=== PATIENT | female | born 1965 | race Two or more races ===

== ENCOUNTER → 2017-11-13 | Outpatient (CLI) | payer SELFPAY ==
--- NOTE | 2017-11-13 15:11 | RAD ---
DATE: 11/13/2017 EXAM: MAMMO JESSICA SCREENING BILATERAL HISTORY: Routine screening COMPARISON: 12/31/2010, 03/06/2009 This study was interpreted with the benefit of Computerized Aided Detection (CAD). The breast parenchyma shows scattered fibroglandular densities. Breast parenchyma level B. FINDINGS: 2-D and 3-D tomosynthesis imaging was performed in CC and MLO projections. There are small smooth unchanged nodules in the posterolateral aspects of both breasts. There is a stable lymph node type density in the left axilla. No new or enlarging breast densities are seen. No suspicious microcalcifications are evident. IMPRESSION: Stable mammograms without evidence of malignancy. BI-RADS CATEGORY: 2 BENIGN FINDING(S) RECOMMENDED FOLLOW-UP: 12M 12 MONTH FOLLOW-UP PQRS compliance statement: Patient information was entered into a reminder system with a target due date for the next mammogram. Mammography is a sensitive method for finding small breast cancers, but it does not detect them all and is not a substitute for careful clinical examination. A negative mammogram does not negate a clinically suspicious finding and should not result in delay in biopsying a clinically suspicious abnormality. "Our facility is accredited by the [employer] Mammography Program."
== END | disposition home or self-care (01) ==
LOC: MAMMO 09:17
PROVIDERS: ATTEND Physician Assistant
DX: Z12.31 Encounter for screening mammogram for malignant neoplasm of breast (principal)
CPT/HCPCS: 77063; 77067

== ENCOUNTER → 2018-08-27 | Outpatient (CLI) | payer SELFPAY ==
[2018-08-27 15:10] LABS: ALBUMIN 3.4 g/dL (3.4-5.0); ALBUMIN/GLOBULIN RATIO 0.8 (1.0-1.7); CALCIUM 9.4 mg/dL (8.5-10.1); CREATININE 0.8 mg/dL (0.6-1.0); GFR 74.5; POTASSIUM 3.9 mmol/L (3.5-5.1); TOTAL BILIRUBIN 0.4 mg/dL (0.2-1.0); TOTAL PROTEIN 7.9 g/dL (6.4-8.2)
[2018-08-28 04:09] LABS: HEMOGLOBIN A1C 9.9 % (4.8-5.6)
== END | disposition home or self-care (01) ==
LOC: LAB 14:12
PROVIDERS: ATTEND Nurse Practitioner Adult Health
DX: E11.65 Type 2 diabetes mellitus with hyperglycemia (principal)
CPT/HCPCS: 36415; 80053; 83036

== ENCOUNTER 2021-12-20 14:41 | Emergency (ER) | payer SELFPAY ==
[~2021-12-20] VITALS: Ht 154.9 cm; Wt 81.4 kg
[2021-12-20 15:02] VITALS: BP 140/84
--- NOTE | 2021-12-20 15:07 | PHYS DOC ---
General Adult EDM: Chief Complaint: SHORTNESS OF BREATH HPI: HPI: Patient is a 56-year-old female who presents to the emergency department for shortness of breath for the last 2 weeks. Patient was sent in by Dr. Flanagan who reported to nursing staff that her "x-ray looked bad". Patient is also reporting left-sided chest pain that is worse with deep inspiration/movement and coughing. She reports a new green productive cough. She reports that she is not having pain currently. The pain does not radiate. Patient has a history of hyperlipidemia, diabetes and hypertension. She denies nausea, vomiting, fevers. (ODESSA RUBIN APRN) Review of Systems: Review of Systems: Constitutional: See HPI Respiratory: See HPI Cardiovascular: See HPI GI: See HPI (ODESSA RUBIN APRN) Allergies: Allergies: Allergies Coded Allergies Type Severity Reaction Last Updated Verified No Known Drug Allergies 12/20/21 No (ODESSA RUBIN APRN) Physical Exam: PE: Constitutional: Well developed, well nourished, no acute distress, non-toxic appearance. [] HENT: Normocephalic, atraumatic, bilateral external ears normal, oropharynx moist, no oral exudates, nose normal. [] Eyes: PERRL, EOMI, conjunctiva normal, no discharge. [] Neck: Normal range of motion, no tenderness, supple, no stridor. [] Cardiovascular:Heart rate regular rhythm, no murmur [] Lungs & Thorax: Wheezing noted in bilateral upper lobes Abdomen: Bowel sounds normal, soft, no tenderness, no masses, no pulsatile masses. [] Skin: Warm, dry, no erythema, no rash. [] Back: No tenderness, normal range of motion Extremities: No tenderness, no cyanosis, no clubbing, ROM intact, no edema. [] Neurologic: Alert and oriented X 3, normal motor function, normal sensory function, no focal deficits noted. [] Psychologic: Affect normal, judgement normal, mood normal. [] (ODESSA RUBIN APRN) Current Patient Data: Labs: Laboratory Tests Test 12/20/21 15:26 White Blood Count 5.1 x10^3/uL Red Blood Count 4.49 x10^6/uL Hemoglobin 11.9 g/dL Hematocrit 37.1 % Mean Corpuscular Volume 83 fL Mean Corpuscular Hemoglobin 27 pg Mean Corpuscular Hemoglobin Concent 32 g/dL Red Cell Distribution Width 14.7 % Platelet Count 356 x10^3/uL Neutrophils (%) (Auto) 53 % Lymphocytes (%) (Auto) 37 % Monocytes (%) (Auto) 9 % Eosinophils (%) (Auto) 1 % Basophils (%) (Auto) 0 % Neutrophils # (Auto) 2.7 x10^3uL Lymphocytes # (Auto) 1.9 x10^3/uL Monocytes # (Auto) 0.5 x10^3/uL Eosinophils # (Auto) 0.1 x10^3/uL Basophils # (Auto) 0.0 x10^3/uL D-Dimer (Cassy) 0.86 mg/L Sodium Level 137 mmol/L Potassium Level 3.9 mmol/L Chloride Level 104 mmol/L Carbon Dioxide Level 22 mmol/L Anion Gap 11 Blood Urea Nitrogen 6 mg/dL Creatinine 0.7 mg/dL Estimated GFR (Cockcroft-Gault) 85.9 BUN/Creatinine Ratio 9 Glucose Level 237 mg/dL Calcium Level 8.9 mg/dL Total Bilirubin 0.6 mg/dL Aspartate Amino Transf (AST/SGOT) 24 U/L Alanine Aminotransferase (ALT/SGPT) 22 U/L Alkaline Phosphatase 95 U/L Troponin I High Sensitivity 47 ng/L Total Protein 6.9 g/dL Albumin 3.2 g/dL Albumin/Globulin Ratio 0.9 Current Medications Medications (Trade) Dose Ordered Sig/Joe Route PRN Reason Start Time Stop Time Status Last Admin Dose Admin Albuterol/ Ipratropium (Duoneb) 3 ml 1X ONCE NEB 12/20/21 15:15 12/20/21 15:16 DC 12/20/21 15:24 Morphine Sulfate (Morphine 2mg Syringe) 2 mg 1X ONCE IV 12/20/21 15:15 12/20/21 15:16 DC 12/20/21 15:25 Iohexol (Omnipaque 350 Mg/ml) 100 ml 1X ONCE IV 12/20/21 16:30 12/20/21 16:31 DC 12/20/21 16:35 (ODESSA RUBIN MANAGER ADVANCED) EKG: EKG: [] EKG performed by ER staff at 1454 shows sinus rhythm with a rate of 94, QTc is 429, no STEMI read by Dr. Arnold at 1456. (ODESSA RUBIN APRN) Radiology/Procedures: Radiology/Procedures: []PROCEDURE: CHEST PA & LATERAL Exam Date: 12/20/2021 3:22 PM XR CHEST 2V Indication: Reason: soa, cough congestion x2wks. / Spl. Instructions: / History: . FINDINGS/ IMPRESSION: The cardiac silhouette is enlarged. Mild bibasilar subsegmental atelectasis and infiltrates are noted. Small bilateral pleural effusions are suspected. No pneumothorax. Degenerative changes are seen in the spine. Electronically signed by: Soy De La Rosa MD (12/20/2021 3:25 PM) [id number] DICTATED AND SIGNED BY: SOY DE LA ROSA MD DATE: 12/20/21 1524 CC: VENKATA SUAREZ MD; ODESSA RUBIN APRN ~ STATUS: REG ER ORD. PHYSICIAN: ODESSA RUBIN APRN REASON: cp, soa, elevated ddimer, OMNI 350, 100ml PROCEDURE: CT ANGIOGRAPHY CHEST CT arteriogram of the chest. HISTORY: Chest pain, short of air, elevated d-dimer CT arteriogram of the chest was done using 100 mL Omnipaque 350 contrast. Coronal MIP images were reconstructed. Thyroid is homogeneous. There is mediastinal adenopathy. There are small to moderate bilateral effusions. Visualized portions of the liver and spleen are unremarkable. There is mild atelectasis in the lung bases. There are groundglass changes from infiltrates or pulmonary edema. Respiratory motion artifact makes evaluation more difficult. Definitive pulmonary embolus is not identified. IMPRESSION: 1. Respiratory motion artifact. 2. No definite pulmonary embolus. 3. Bilateral small to moderate pleural effusions. 4. Mild basilar atelectasis. 5. Groundglass infiltrates or edema. 6. Mediastinal adenopathy etiology not determined. PQRS Compliance Statement: One or more of the following individualized dose reduction techniques were utilized for this examination: 1. Automated exposure control 2. Adjustment of the mA and/or kV according to patient size 3. Use of iterative reconstruction technique Electronically signed by: Bonilla Steele MD (12/20/2021 4:54 PM) [id number] DICTATED AND SIGNED BY: BONILLA STEELE MD DATE: 12/20/21 1650 CC: VENKATA SUAREZ MD; ODESSA RUBIN APRN ~ (ODESSA RUBIN APRN) Heart Score: C/O Chest Pain: Yes HEART Score for Chest Pain: HEART Score for Chest Pain Response (Comments) Value History Slighlty/Non-Suspicious 0 ECG Normal 0 Age >45 - < 65 1 Risk Factors >3 Risk Factors or Hx CAD 2 Troponin < Normal Limit 0 Total 3 Risk Factors: Risk Factors: DM, Current or recent (<one month) smoker, HTN, HLP, family history of CAD, obesity. Risk Scores: Score 0 - 3: 2.5% MACE over next 6 weeks - Discharge Home Score 4 - 6: 20.3% MACE over next 6 weeks - Admit for Clinical Observation Score 7 - 10: 72.7% MACE over next 6 weeks - Early Invasive Strategies (ODESSA RUBIN APRN) Course & Med Decision Making: Course & Med Decision Making Pertinent Labs and Imaging studies reviewed. (See chart for details) Patient presents to the emergency department for chest pain and shortness of breath. Chest pain is worse with cough and she reports that new green producti ve cough. She reports that the chest pain is also worse with ambulation. Work- up in the ER consisted of blood work including troponin, EKG and chest x-ray. Patient's troponin was not elevated. She had an unremarkable CBC and CMP. Her D-dimer was 0.[address] angio was performed which showed no pulmonary embolism. Patient's chest x-ray shows bibasilar pneumonia. Patient will be treated with an antibiotic. Patient continues to be chest pain-free. Patient was treated with pain medication and IV fluids. She was also given a breathing treatment as she was noted to have wheezing. She will be tested for COVID-19. Patient continues to have mild wheezing after first breathing treatment she was given a second breathing treatment and a steroid. She reports that her shortness of breath has improved. Discussed case with supervising physician. Patient will be discharged home with an albuterol inhaler. She is advised to purchase a pulse oximeter and monitor her oxygen saturations at home. Patient's vital signs are stable she is not hypoxic or tachypneic. I discussed with patient all findings and diagnostic testing as well as the need to follow-up with PCP for further evaluation and treatment or return to the ER if any new or worsening symptoms. Strict return precautions were also discussed at length. Patient voiced understanding and agreement with the plan. Patient is hemodyn amically stable at the time of disposition. (ODESSA RUBIN APRN) Dragon Disclaimer: Dragon Disclaimer: This electronic medical record was generated, in whole or in part, using a voice recognition dictation system. (ODESSA RUBIN APRN) Attending Co-Sign The patient was seen and interviewed as well as examined at the bedside. The chart was reviewed. The case was discussed. Agree with the plan of care. (ÁLVARO ARNOLD DO) Departure Departure: Impression: Primary Impression: Pneumonia Qualified Codes: J18.9 - Pneumonia, unspecified organism Disposition: HOME / SELF CARE / HOMELESS Condition: GOOD Referrals: VENKATA SUAREZ MD (PCP) Patient Instructions: Pneumonia, Adult Additional Instructions: You were seen in the emergency department today for shortness of breath and chest wall pain. You reported that you are chest pain-free in the emergency department. As we discussed, does not appear that you are experiencing acute coronary syndrome at this time. It is likely that your chest pain is due to the pneumonia. This is going to be treated with an antibiotic. Please start and finish the antibiotic completely. You are also being discharged home with an albuterol inhaler that you can use as needed for shortness of breath or wheezing. I would advise you to purchase a pulse oximeter and monitor your oxygen saturations at home and return to the emergency department if they drop below 90%. Take your medications at home as directed. Please follow-up with your primary care provider tomorrow regarding your ER visit, please give your primary care provider your CT imaging report. Return to the emergency department if you develop worsening of your shortness of breath, chest pain, high fevers refractory to treatment, intractable nausea or vomiting, dizziness or any new or worsening concerns. Scripts Albuterol Sulfate (PROAIR HFA INHALER) 8.5 Gm Hfa.aer.ad 1 PUFF INH PRN Q6HRS PRN for SHORTNESS OF BREATH for 10 Days, #1 EACH 0 Refills Prov: ODESSA RUBIN APRN 12/20/21 Azithromycin (AZITHROMYCIN TABLET) 250 Mg Tablet 1 PKG PO UD for pneumonia for 5 Days, #6 TAB 0 Refills 2 the first day followed by 1 for days 2-5 Prov: ODESSA RUBIN APRN 12/20/21 ODESSA RUBIN APRN Dec 20, 2021 15:07 ÁLVARO ARNOLD DO Dec 21, 2021 06:13
[2021-12-20] MEDS ORDERED: IPRATRPIUM/ALBUTEROL 0.5/2.5MG 3 ML NEBU. NEB ONE ×2 (15:15→17:15)
[2021-12-20] MEDS ORDERED: MORPHINE SULFATE 2 MG/ML DISP.SYRIN. IV ONE (15:15)
--- NOTE | 2021-12-20 15:28 | RAD ---
Exam Date: 12/20/2021 3:22 PM XR CHEST 2V Indication: Reason: soa, cough congestion x2wks. / Spl. Instructions: / History: . FINDINGS/ IMPRESSION: The cardiac silhouette is enlarged. Mild bibasilar subsegmental atelectasis and infiltrates are note d. Small bilateral pleural effusions are suspected. No pneumothorax. Degenerative changes are seen in the spine. Electronically signed by: Ventura De La Rosa MD (12/20/2021 3:25 PM) [id number]
[2021-12-20 15:48] LABS: BASO % 0 % (0-3); EOS # 0.1 x10^3/uL (0.0-0.7); EOS % 1 % (0-3); HEMATOCRIT 37.1 % (36.0-47.0); HEMOGLOBIN 11.9 g/dL (12.0-15.5); LYMPH # 1.9 x10^3/uL (1.0-4.8); LYMPH % 37 % (24-48); MEAN CORPUSCULAR HEMOGLOBIN 27 pg (25-35); MEAN CORPUSCULAR HGB CONC 32 g/dL (31-37); MEAN CORPUSCULAR VOLUME 83 fL (79-100); MONO # 0.5 x10^3/uL (0.0-1.1); MONO % 9 % (0-9); NEUT # 2.7 x10^3uL (1.8-7.7); NEUT % 53 % (31-73); PLATELET COUNT 356 x10^3/uL (140-400); RED BLOOD COUNT 4.49 x10^6/uL (3.50-5.40); RED CELL DISTRIBUTION WIDTH 14.7 % (11.5-14.5); WHITE BLOOD COUNT 5.1 x10^3/uL (4.0-11.0)
[2021-12-20 15:56] LABS: CALCIUM 8.9 mg/dL (8.5-10.1); CREATININE 0.7 mg/dL (0.6-1.0); GFR 85.9; POTASSIUM 3.9 mmol/L (3.5-5.1)
[2021-12-20 16:02] LABS: ALBUMIN 3.2 g/dL (3.4-5.0); ALBUMIN/GLOBULIN RATIO 0.9 (1.0-1.7); TOTAL BILIRUBIN 0.6 mg/dL (0.2-1.0); TOTAL PROTEIN 6.9 g/dL (6.4-8.2)
[2021-12-20] MEDS ORDERED: IOHEXOL 350 MG/ML 100 ML VIAL. IV ONE (16:30)
--- NOTE | 2021-12-20 16:57 | RAD ---
CT arteriogram of the chest. HISTORY: Chest pain, short of air, elevated d-dimer CT arteriogram of the chest was done using 100 mL Omnipaque 350 contrast. Coronal MIP images were rec onstructed. Thyroid is homogeneous. There is mediastinal adenopathy. There are small to moderate bila teral effusions. Visualized portions of the liver and spleen are unremarkable. There is mild atelecta sis in the lung bases. There are groundglass changes from infiltrates or pulmonary edema. Respiratory motion artifact makes evaluation more difficult. Definitive pulmonary embolus is not identified. IMPRESSION: 1. Respiratory motion artifact. 2. No definite pulmonary embolus. 3. Bilateral small to moderate pleural effusions. 4. Mild basilar atelectasis. 5. Groundglass infiltrates or edema. 6. Mediastinal adenopathy etiology not determined. PQRS Compliance Statement: One or more of the following individualized dose reduction techniques were utilized for this examinat ion: 1. Automated exposure control 2. Adjustment of the mA and/or kV according to patient size 3. Use of iterative reconstruction technique Electronically signed by: Bonilla Steele MD (12/20/2021 4:54 PM) [id number]
[2021-12-20] MEDS ORDERED: ALBU2.5V8 INH (17:12)
[2021-12-20] MEDS ORDERED: AZIT250T6 PO (17:12)
[2021-12-20] MEDS ORDERED: DEXAMETHASONE SOD PHOS 10 MG/ML VIAL. IV ONE (17:15)
--- NOTE | 2021-12-20 20:40 | EKG ---
[address] [address] Test Date: 2021-12-20 Test Time: 14:54:05 Pat Name: SOBEIDA CASAREZ Department: Room: Gender: [employer] Founder: : 1965 Requested By: ODESSA RUBIN Order Number: [id number] Reading MD: Measurements Intervals [place] Rate: 94 P: 25 [place]: 168 QRS: -47 QRSD: 100 T: 42 QT: 394 QTc: 499 Interpretive Statements SINUS RHYTHM LEFT ATRIAL ABNORMALITY ABNORMAL LEFT AXIS DEVIATION LOW LIMB LEAD VOLTAGE S1,S2,S3 PATTERN LEFT ANTERIOR FASCICULAR BLOCK PROLONGED QT ABNORMAL ECG RI6.01 No previous ECG available for comparison
== END 2021-12-20 17:55 | disposition home or self-care (01) ==
LOC: ER 14:41
DX: J18.9 Pneumonia, unspecified organism (principal); Z20.822 Contact with and (suspected) exposure to COVID-19
CPT/HCPCS: 36415; 71046; 71275; 80053; 84484; 85025; 85379; 93005; 94640; 96374; 96375; 99285; C9803; J1100; J2270; Q9967; U0003

== ENCOUNTER 2021-12-30 07:48 | Emergency (ER) | payer SELFPAY ==
[~2021-12-30] VITALS: Ht 154.9 cm; Wt 86.9 kg
[~2021-12-30 07:48] MED LIST: ALBU2.5V8 INH; AZIT250T6 PO
[2021-12-30] MEDS ORDERED: SUCCINYLCHOLINE 200 MG/10 ML VIAL. ONE (08:00)
[2021-12-30] MEDS ORDERED: FUROSEMIDE 40 MG/4 ML VIAL ONE (08:04)
[2021-12-30 08:15] VITALS: BP 50/26
[2021-12-30] MEDS ORDERED: NOREPINEPHRINE BITARTRATE 4 MG/4 ML VIAL. IV ONE (08:22)
[2021-12-30] MEDS ORDERED: IV DEXTROSE 5% 250 ML IV ONE (08:22)
[2021-12-30 08:32] LABS: BASO # 0.1 x10^3/uL (0.0-0.2); BASO % 1 % (0-3); EOS # 0.1 x10^3/uL (0.0-0.7); EOS % 2 % (0-3); HEMATOCRIT 39.9 % (36.0-47.0); HEMOGLOBIN 12.1 g/dL (12.0-15.5); LYMPH # 3.9 x10^3/uL (1.0-4.8); LYMPH % 61 % (24-48); MEAN CORPUSCULAR HEMOGLOBIN 26 pg (25-35); MEAN CORPUSCULAR HGB CONC 30 g/dL (31-37); MEAN CORPUSCULAR VOLUME 87 fL (79-100); MONO # 0.3 x10^3/uL (0.0-1.1); MONO % 5 % (0-9); NEUT % 31 % (31-73); PLATELET COUNT 272 x10^3/uL (140-400); RED CELL DISTRIBUTION WIDTH 15.6 % (11.5-14.5); WHITE BLOOD COUNT 6.3 x10^3/uL (4.0-11.0)
[2021-12-30 08:44] LABS: CALCIUM 9.1 mg/dL (8.5-10.1); GFR 56.9; POTASSIUM 4.3 mmol/L (3.5-5.1)
--- NOTE | 2021-12-30 08:44 | PHYS DOC ---
Past History Past Surgical History: No Surgical History Adult General Chief Complaint Chief Complaint: RESP ARREST HPI HPI Patient brought emergently by EMS for respiratory distress. Per EMS patient treated for pneumonia over the last 2 weeks with continued worsening of overall respiratory status. On EMS arrival the patient tachypneic and in respiratory distress hypoxic in mid 80s on room air. Patient attempted CPAP in route with EMS but did not tolerate. Just before EMS arrival the patient became unresponsive. Daughter is in the emergency department and able to report that patient treated for pneumonia initially seen at this facility 2 weeks ago and started on azithromycin and given albuterol inhaler. She states the respiratory status continued to worsen and saw primary care physician on Friday and began on doxycycline. Despite this patient's respiratory status continued to worsen with complaint of chest pain throughout the day yesterday, this morning daughter reports significant worsening respiratory status, ultimately EMS was called. On arrival patient is unresponsive with minimal agonal respiratory effort, initial telemetry rhythm bradycardic with wide based QRS with few intermittent P waves which seem to suggest complete heart block Review of Systems Review of Systems Unable to assess secondary to critical illness Allergies Allergies Allergies Coded Allergies Type Severity Reaction Last Updated Verified No Known Drug Allergies 12/20/21 No Physical Exam Physical Exam Constitutional: Agonal respirations HENT: Normocephalic, atraumatic, frothy discharge from the mouth Eyes: PERRLA, Neck: Bilateral JVD present Cardiovascular: Thready pulses palpation, bradycardic Lungs & Thorax: Diffuse crackles bilateral with bagging, diminished breath sounds overall Abdomen: Bowel sounds normal, soft, no tenderness, no masses, no pulsatile masses. [] Skin: Diaphoretic Back: No tenderness, no CVA tenderness. [] Extremities: No tenderness, no cyanosis, no clubbing, ROM intact, no edema. [] Neurologic: Unresponsive EKG EKG [] Radiology/Procedures Radiology/Procedures [] Impressions: Acute hypoxic respiratory failure Complete heart block Hypotension Heart Score C/O Chest Pain: N/A HEART Score for Chest Pain: HEART Score for Chest Pain Response (Comments) Value History Highly Suspicious [address] Depression 2 Age >45 - < 65 1 Risk Factors >3 Risk Factors or Hx CAD 2 Troponin >1-<3x Normal Limit 1 Total 8 Risk Factors: Risk Factors: DM, Current or recent (<one month) smoker, HTN, HLP, family history of CAD, obesity. Risk Scores: Risk Factors: DM, Current or recent (<one month) smoker, HTN, HLP, family history of CAD, obesity. Course & Med Decision Making Course & Med Decision Making Patient with minimal respiratory effort on initial arrival. Patient bagged on arrival, initial rhythm wide-based QRS with intermittent nonconducted P waves. Transcutaneous pacing initiated. Rapid sequence intubation proceeded. Patient with airway full of frothy material, significant suctioning required for intubation. Intubation with glide scope with direct passage of tube. 2 Amps of calcium chloride given. Lasix 80 mg given. patient with initial pacemaker capture and maintained blood pressures. Work-up proceeded, Medina catheter placed. Pressures began to drop and Levophed initiated as labs and work-up continued, no labs available. As CCU transfer to [facility] was beginning to be arranged, blood pressure continued to drop, and pulses were lost. Pacer no longer capturing, and underlying rhythm asystole. ACLS protocol initiated and followed. Chest compressions and 2 rounds of IV epinephrine given with continued no cardiac activity and asystole. At this point code was called. Intubation: Indication emergent respiratory failure, RSI with etomidate and succinylcholine given, see nursing documentation, 7.5 ET tube placed with glide scope without difficulty, good color change, bilateral breath sounds, improveme nt in oxygenation Critical care note, 30 minutes, direct patient care. Acute hypoxic respiratory failure, cardiac arrest, interventions, transcutaneous pacing, Lasix, calcium, epinephrine Dragon Disclaimer Dragon Disclaimer This electronic medical record was generated, in whole or in part, using a voice recognition dictation system. Departure Departure: Impression: Primary Impression: Pneumonia Additional Impressions: Acute respiratory failure with hypoxia Complete heart block Cardiac arrest Disposition: 20 Referrals: VENKATA SUAREZ MD (PCP) Problem Qualifiers NICKY LOPEZ MD December 30, 2021 08:44
[2021-12-30] MEDS ORDERED: EPINEPHrine SYRINGE 1 MG/10 ML SYRINGE. ONE (09:00)
[2021-12-30] MEDS ORDERED: ETOMIDATE 40 MG/20 ML VIAL. ONE (09:00)
[2021-12-30] MEDS ORDERED: ATROPINE 1 MG/10 ML DISP.SYRINGE. ONE (09:00)
[2021-12-30] MEDS ORDERED: CALCIUM CHLORIDE 1,000 MG/10 ML DISP.SYRIN IV ONE (09:00)
[2021-12-30 09:11] LABS: ALBUMIN/GLOBULIN RATIO 0.8 (1.0-1.7); TOTAL BILIRUBIN 0.5 mg/dL (0.2-1.0); TOTAL PROTEIN 6.6 g/dL (6.4-8.2)
== END 2021-12-30 08:30 ==
LOC: ER 07:48
DX: I46.9 Cardiac arrest, cause unspecified (principal); J96.01 Acute respiratory failure with hypoxia; I44.2 Atrioventricular block, complete; J18.9 Pneumonia, unspecified organism
CPT/HCPCS: 31500; 51702; 80053; 82553; 83605; 83880; 84145; 84484; 85025; 92950; 93005; 99291; J0171; J0330; J0461; 94002